=== PATIENT | male | born 1945 | race Hispanic/Latino ===

== ENCOUNTER 2016-05-26 15:18 | Emergency (ER) | payer MEDICARE, OTHER ==
[2016-05-26 15:59] VITALS: TEMP 99.6; BMI 28.2
--- NOTE | 2016-05-26 16:22 | ED PDOC ---
Arrival/HPI - General Chief Complaint: Abdominal Pain Time Seen by Provider: 05/26/16 15:36 Historian: Patient - History of Present Illness Narrative History of Present Illness (Text): 05/26/16 16:10 A 71 year old male, whose past medical history includes hypertension and liver cancer, presents to the emergency department complaining of abdominal distension for the past couple of days. Patient reports he did not notice a change in the abdomen but patient states she has seen worsening distension. Patient denies any abdominal pain, shortness of breath, fever, chills, cough, or any other complaints at this time. Patient has history of unresectable hepatocellular carcinoma had chemotherapy in the past but it showed no improvement and therefore was started on a clinical trial by his Oncologist. Patient is currently on trail with [id number] and/or Tremelimumab since 04/07/2016. PMD: Dr. Adkins Oncologist: Dr. Last Craven ([phone]) Time/Duration: 24 hours Symptom Onset: Gradual Symptom Course: Worsening Quality: Other Activities at Onset: Rest Context: Home Past Medical History - Provider Review Nursing Documentation Reviewed: Yes - Infectious Disease Hx of Infectious Diseases: None - Tetanus Immunization Tetanus Immunization: Unknown - Cardiac Hx Hypertension: Yes Hx Pacemaker: No - Pulmonary Hx Respiratory Disorders: No - Neurological Hx Neurological Disorder: No - HEENT Hx HEENT Disorder: No - Renal Hx Renal Disorder: No - Endocrine/Metabolic Hx Endocrine Disorders: No - Hematological/Oncological Hx Cancer: Yes (Liver CA) Hx Chemotherapy: Yes (Last dose 01/13/16 in AM) - Integumentary Hx Dermatological Disorder: No - Musculoskeletal/Rheumatological Hx Musculoskeletal Disorders: No Hx Falls: No - Gastrointestinal Hx Gastrointestinal Disorders: Yes - Genitourinary/Gynecological Hx Genitourinary Disorders: No - Psychiatric Hx Emotional Abuse: No Hx Physical Abuse: No Hx Substance Use: No - Surgical History Hx Cardiac Catheterization: No Hx Coronary Stent: No - Anesthesia Hx Anesthesia: No Hx Anesthesia Reactions: No Hx Malignant Hyperthermia: No - Suicidal Assessment Feels Threatened In Home Enviroment: No Family/Social History - Physician Review Nursing Documentation Reviewed: Yes Family/Social History: No Known Family HX Smoking Status: Former Smoker Hx Alcohol Use: Yes Hx Substance Use: No Allergies/Home Meds Allergies/Adverse Reactions: Allergies No Known Allergies Allergy (Verified 05/26/16 15:59) Home Medications: Home Meds Medication Instructions Recorded Confirmed Losartan [Cozaar] 100 mg PO DAILY 11/18/15 05/26/16 Tremelimunab 1 unit IV MON 05/26/16 05/26/16 Review of Systems - Physician Review All systems were reviewed & negative as marked: Yes - Review of Systems Respiratory: absent: SOB, Cough Gastrointestinal: Other (abdominal distension). absent: Abdominal Pain Physical Exam Vital Signs Reviewed: Yes Vital Signs Temp Pulse Resp BP Pulse Ox 05/26/16 16:23 89 18 104/67 95 05/26/16 15:55 99.6 F 92 H 18 102/68 95 Temperature: Afebrile Blood Pressure: Normal Pulse: Regular Respiratory Rate: Normal Appearance: Positive for: Well-Appearing, Non-Toxic, Comfortable Pain Distress: None Mental Status: Positive for: Alert and Oriented X 3 - Systems Exam Head: Present: Atraumatic, Normocephalic Pupils: Present: PERRL Extroacular Muscles: Present: EOMI Conjunctiva: Present: Normal Mouth: Present: Moist Mucous Membranes Neck: Present: Normal Range of Motion Respiratory/Chest: Present: Clear to Auscultation, Good Air Exchange. No: Respiratory Distress, Accessory Muscle Use Cardiovascular: Present: Regular Rate and Rhythm, Normal S1, S2. No: Murmurs Abdomen: Present: Distention, Normal Bowel Sounds, Hernias (ventral hernia reducible), Other (Ascites). No: Tenderness, Peritoneal Signs, Rebound, Guarding Upper Extremity: Present: Normal Inspection. No: Cyanosis, Edema Lower Extremity: Present: Edema (trace edema). No: Normal Inspection Neurological: Present: GCS=15, CN II-XII Intact, Speech Normal Skin: Present: Warm, Dry, Normal Color. No: Rashes Psychiatric: Present: Alert, Oriented x 3, Normal Insight, Normal Concentration Medical Decision Making ED Course and Treatment: 05/26/16 16:34 Impression: 71 year old male with abdominal distension Differential Diagnosis included but are not limited to: Ascites Plan: -- Labs -- Reassess and disposition Prior Visits: Notes and results from previous visits were reviewed. Patient came in on 02/19/16 for evaluation of scrotal pain and swelling. Progress Notes: 05/26/16 18:15 Testicle exam was nontender. Some scrotal swelling but not buldging. Very mild swelling. No redness or warmth. No evidence of cellulitis. Labs were reviewed with Dr. Marquez who is covering for his Bagging Salvager/ Oncologist at [facility]. He compared them to his previous labs they have there from about a month ago. He agrees that since this distention is not causing the patient any discomfort and labs are as such then the patient can follow up with them tomorrow. Dr. Marquez states that he should continue getting the CT through the same place they prescribed him for and not at this moment in the ED. Clinically there is no indication at this time for a CT urgently in the. Patient and feel comfortable with the game plan. They will follow up with Dr. Last Craven ([phone]) tomorrow as directed. - Lab Interpretations Lab Results: 05/26/16 17:00 05/26/16 17:00 Lab Results 05/26/16 17:00: WBC 2.9 L*, RBC 3.68, Hgb 12.3 L, Hct 34.7 L, MCV 94.3, MCH 33.4 , MCHC 35.4, RDW 14.8 H, Plt Count 144, MPV 9.9, Gran % 69.6 H, Lymph % (Auto) 20.6 L, Moody % (Auto) 6.3 H, Eos % (Auto) 2.8, Baso % (Auto) 0.7, Gran # 1.99, Lymph # 0.6 L, Moody # 0.2, Eos # 0.1, Baso # 0.02, PT 12.0 H, INR 1.11 H, APTT 26.3, Sodium 131 L, Potassium 3.8, Chloride 97 L, Carbon Dioxide 25, Anion Gap 13, BUN 9, Creatinine 0.9, Est GFR ( Amer) > 60, Est GFR (Non-Af Amer) > 60, Random Glucose 94, Calcium 9.1, Total Bilirubin 2.4 H, AST 255 H, ALT 98 H, Alkaline Phosphatase 170 H, Total Protein 7.2, Albumin 3.2, Globulin 4.0, Albumin/Globulin Ratio 0.8 L, Lipase 119 I have reviewed the lab results: Yes Interpretation: Abnormal lab values (elevated LFTs) - Scribe Statement The provider has reviewed the documentation as recorded by the Bernarda Zambrano training under [place] Mann All medical record entries made by the Bernarda were at my direction and personally dictated by me. I have reviewed the chart and agree that the record accurately reflects my personal performance of the history, physical exam, medical decision making, and the department course for this patient. I have also personally directed, reviewed, and agree with the discharge instructions and disposition. Disposition/Present on Arrival - Present on Arrival Any Indicators Present on Arrival: No History of DVT/PE: No History of Uncontrolled Diabetes: No Urinary Catheter: No History of Decub. Ulcer: No History Surgical Site Infection Following: None - Disposition Have Diagnosis and Disposition been Completed?: Yes Diagnosis: Ascites Disposition: HOME/ ROUTINE Disposition Time: 18:20 Patient Plan: Discharge Patient Problems: Current Active Problems Problem Status Diagnosed Ascites Acute Condition: GOOD Discharge Instructions (ExitCare): Ascites (DC) Additional Instructions: Sixto, thank you for letting us take care of you today. Your provider was Dr. Rizo. You were treated for Ascites. The emergency medical care you received today was directed at your acute symptoms. If you were prescribed any medication, please fill it and take as directed. It may take several days for your symptoms to resolve. Return to the Emergency Department if your symptoms worsen, do not improve, or if you have any other problems. Please contact your doctor or call one of the physicians/clinics you have been referred to that are listed on the Patient Visit Information form that is included in your discharge packet. Bring any paperwork you were given at discharge with you along with any medications you are taking to your follow up visit. Our treatment cannot replace ongoing medical care by a primary care provider (PCP) outside of the emergency department. Thank you for allowing the [facility] team to be part of your care today. If you had an X-Ray or CT scan: A Radiologist will review the ED reading if any change in treatment is needed we will contact you. If you had a blood, urine, or wound culture: It will take several days for the results, if any change in treatment is needed we will contact you. If you had an STI test: It will take 48 hours for the results. Please call after 1 week if you have not heard back. Referrals: Ok Adkins MD [Primary Care Provider] - Follow up with primary
[2016-05-26 17:27] LABS: ADD MANUAL DIFF? NO
[2016-05-26 17:38] LABS: BASO # 0.02 K/mm3 (0.0-2.0); BASO % 0.7 % (0.0-3.0); EOS # 0.1 (0.0-0.7); EOS % 2.8 % (1.5-5.0); GRAN # 1.99 (1.4-6.5); GRAN % 69.6 % (50.0-68.0); HEMATOCRIT 34.7 % (42.0-52.0); LYMPH # 0.6 (1.2-3.4); LYMPH % 20.6 % (22.0-35.0); MEAN CELL VOLUME 94.3 fL (80.0-105.0); MEAN CORPUSCULAR HEMOGLOBIN 33.4 pg (25.0-35.0); MEAN CORPUSCULAR HGB CONC 35.4 g/dl (31.0-37.0); MEAN PLATELET VOLUME 9.9 fl (7.0-11.0); MONO # 0.2 (0.1-0.6); MONO % 6.3 % (1.0-6.0); PLATELET COUNT 144 10^3/uL (120.0-450.0); RED CELL DISTRIBUTION WIDTH 14.8 % (11.5-14.5)
[2016-05-26 17:42] LABS: ALB/GLOB RATIO 0.8 (1.1-1.8); ALKALINE PHOSPHATASE 170 U/L (38-133); ALT/SGPT 98 U/L (7-56); AST/SGOT 255 U/L (15-59); BILIRUBIN,TOTAL 2.4 mg/dL (0.2-1.3); BLOOD UREA NITROGEN 9 mg/dL (7-21); CALCIUM 9.1 mg/dL (8.4-10.5); CARBON DIOXIDE 25 mmol/L (21-33); CHLORIDE 97 mmol/L (98-107); GFR AFRICAN-AMERICAN > 60; GLUCOSE,RANDOM 94 mg/dL (70-110); LIPASE 119 U/L (23-300); POTASSIUM 3.8 mmol/L (3.6-5.0); SODIUM 131 mmol/L (132-148); TOTAL PROTEIN 7.2 g/dL (5.8-8.3)
[2016-05-26 17:45] LABS: INR 1.11 (0.93-1.08); PARTIAL THROMBOPLASTIN TIME 26.3 Seconds (23.7-30.8)
[2016-05-26 17:51] LABS: WHITE BLOOD COUNT 2.9 10^3/ul (4.5-11.0)
[2016-05-26 18:24] VITALS: BP 103/69; PULSE 88; RESP 17; O2SAT 96
== END 2016-05-26 18:24 | disposition home or self-care (01) ==
LOC: ED 15:18
DX: R18.8 Other ascites (principal); I10 Essential (primary) hypertension; Z85.05 Personal history of malignant neoplasm of liver; Z87.891 Personal history of nicotine dependence

== ENCOUNTER 2016-07-01 10:41 | Inpatient (IN) | payer MEDICARE, OTHER ==
[2016-07-01 10:59] VITALS: BMI 29.9
--- NOTE | 2016-07-01 11:31 | ED PDOC ---
Arrival/HPI - General Chief Complaint: Abdominal Pain Time Seen by Provider: 07/01/16 11:08 Historian: Patient - History of Present Illness Narrative History of Present Illness (Text): 07/01/16 11:31 Patient is a 71 year old male whose past medical history includes hepatocellular carcinoma, previously on experimental treatment which was unsuccessful, and hypertension, presents to the emergency department with worsening abdominal distension and leg swelling over the past few days. He states he is able to walk without difficulty. Denies shortness of breath, pain, or other complaints. Patient notes he has had abdominal swelling for the past few months. Patient presents outpatient CT report from 05/27/16 which showed: Impression: 1. Since 03/27/16, increased bilateral multifocal liver tumors with slightly increased size of tumor thrombous in IVC extending to cavoatrial junction. Unchanged extensive portal vein tumor thrombosis . 2. New peripancreatic adenopathy, consistent with brandee metastasis. 3. Increased now moderate volume abdominopelvic ascites PMD: Dr. Jed Gamboa Time/Duration: < week Symptom Onset: Gradual Symptom Course: Unchanged Modifying Factors (Text): None Associated Symptoms (Text): None Past Medical History - Provider Review Nursing Documentation Reviewed: Yes - Infectious Disease Hx of Infectious Diseases: None - Tetanus Immunization Tetanus Immunization: Unknown - Reproductive Currently : No - Cardiac Hx Cardiac Disorders: Yes Hx Hypertension: Yes Hx Pacemaker: No - Pulmonary Hx Respiratory Disorders: No - Neurological Hx Neurological Disorder: No - HEENT Hx HEENT Disorder: No - Renal Hx Renal Disorder: No - Endocrine/Metabolic Hx Endocrine Disorders: No - Hematological/Oncological Hx Blood Disorders: Yes Hx Cancer: Yes (Liver CA) Hx Chemotherapy: Yes (Last dose 01/13/16 in AM) - Integumentary Hx Dermatological Disorder: No - Musculoskeletal/Rheumatological Hx Musculoskeletal Disorders: No Hx Falls: No - Gastrointestinal Hx Gastrointestinal Disorders: Yes - Genitourinary/Gynecological Hx Genitourinary Disorders: No - Psychiatric Hx Emotional Abuse: No Hx Physical Abuse: No Hx Substance Use: No - Surgical History Hx Cardiac Catheterization: No Hx Coronary Stent: No - Anesthesia Hx Anesthesia: No Hx Anesthesia Reactions: No Hx Malignant Hyperthermia: No - Suicidal Assessment Feels Threatened In Home Enviroment: No Family/Social History - Physician Review Nursing Documentation Reviewed: Yes Family/Social History: Unknown Family HX Smoking Status: Former Smoker Hx Alcohol Use: No Hx Substance Use: No Allergies/Home Meds Allergies/Adverse Reactions: Allergies No Known Allergies Allergy (Verified 07/01/16 19:44) Home Medications: Home Meds Medication Instructions Recorded Confirmed Losartan [Cozaar] 100 mg PO DAILY 11/18/15 07/01/16 Ergocalciferol (Vitamin D2) 0 unit PO DAILY 07/01/16 07/01/16 [Vitamin D] Gabapentin [Neurontin] 250 mg PO DAILY 07/01/16 07/01/16 predniSONE [predniSONE Tab] 20 mg PO DAILY 07/01/16 07/01/16 Review of Systems - Review of Systems Eyes: absent: Vision Changes ENT: absent: Hearing Changes Respiratory: absent: SOB Cardiovascular: Edema, MCKEE. absent: Chest Pain, Calf Pain, Syncope Gastrointestinal: Other (Abdominal swelling). absent: Abdominal Pain, Nausea, Vomiting Genitourinary Male: absent: Dysuria, Frequency, Hematuria Musculoskeletal: absent: Back Pain Skin: absent: Rash Neurological: absent: Headache Endocrine: absent: Diaphoresis Psychiatric: absent: Depression Physical Exam - Physical Exam Narrative Physical Exam (Text): Head: Atraumatic. Normocephalic. Eyes: PERRL. EOMI. Conjunctivae are not pale. ENT: Mucous membranes are moist and intact. Oropharynx is clear and symmetric. Neck: Supple. Full ROM. No JVD. No lymphadenopathy. Cardiovascular: Regular rate. Regular rhythm. No murmurs, rubs, or gallops. Distal pulses are 2+ and symmetric. Pulmonary/Chest: No evidence of respiratory distress. Clear to auscultation bilaterally. No wheezing, rales or rhonchi. Abdominal: Abdominal distension with positive fluid wave. Prominent abdominal wall blood vessels. No rebound, guarding, or rigidity. No organomegaly. Good bowel sounds. Back: No CVA tenderness. Extremities: Bilateral lower extremity edema. No cyanosis. No clubbing. Full range of motion in all extremities. No calf tenderness. Skin: Skin appears mildly jaundice and pale. Skin is warm and dry. No petechiae. No purpura. Neurological: Alert, awake, and oriented to person, place, time, and situation. Normal speech. Motor and sensory intact. No asterixis. Psychiatric: Good eye contact. Normal interaction, affect, and behavior. Vital Signs Reviewed: Yes Vital Signs Temp Pulse Resp BP Pulse Ox 07/01/16 14:38 97 H 19 102/61 99 07/01/16 10:59 98.2 F 99 H 16 132/74 98 Temperature: Afebrile Blood Pressure: Normal Pulse: Regular Respiratory Rate: Normal Appearance: Positive for: Non-Toxic, Comfortable, Ill-Appearing Pain Distress: Mild Mental Status: Positive for: Alert and Oriented X 3 Medical Decision Making ED Course and Treatment: Differential Diagnosis included but are not limited to: Ascites, advance hepatocellular carcinoma Plan: Patient denies pain, in no respiratory distress. Will check basic labs and consult oncologist and PMD Prior Visits: Notes and results from previous visits were reviewed. Patient last seen in the ED on 05/26/16 for abdominal distension and discharged home. Progress Notes: Patient's history supplemented by family. Patient denies chest pain, denies shortness of breath, denies abdominal pain. Exam consistent with ascites. No fever, no peritoneal signs. Patient's oncologist here through [facility] has been with Dr. Ledesma. CT ordered given progressive distension: PROCEDURE: CT Abdomen and Pelvis without intravenous contrast Stencil Machine Operator : Vida Marvin V. Report Date : 07/01/2016 13:24:29 IMPRESSION: Interval increased ascites All increased liver masses this patient with prior known left and right hepatic lobe masses. Patient also has history of unknown portal vein thrombosis. Assessment for thrombi limited without IV contrast Case discussed with Dr. Magana, covering Dr. Adkins, who accepts patient for admission. Will admit for oncology consultation given advanced hempatocellular carcinoma history with progressive ascites and therapeutic paracentesis. 07/03/16 11:41 - Lab Interpretations Lab Results: 07/01/16 11:39 07/01/16 11:39 Lab Results 07/01/16 12:30: Urine Color Yellow, Urine Appearance Clear, Urine pH 7.0, Ur Specific Cotton 1.010, Urine Protein Negative, Urine Glucose (UA) Negative, Urine Ketones Negative, Urine Blood Negative, Urine Nitrate Negative, Urine Bilirubin Negative, Urine Urobilinogen 1.0 H, Ur Leukocyte Esterase Negative 07/01/16 11:39: Blood Type A POSITIVE, Antibody Screen Negative, BBK History Checked Patient has bt 07/01/16 11:39: Sodium 131 L, Potassium 3.9, Chloride 97 L, Carbon Dioxide 26, Anion Gap 12, BUN 13, Creatinine 0.8, Est GFR ( Amer) > 60, Est GFR (Non- Af Amer) > 60, Random Glucose 92, Calcium 9.1, Total Bilirubin 4.3 H, AST 317 H , ALT 178 H, Alkaline Phosphatase 298 H, Lactate Dehydrogenase 545, Total Creatine Kinase 32 L, Troponin I < 0.01, NT-Pro-B Natriuret Pep 460 H, Total Protein 7.0, Albumin 3.1, Globulin 4.0, Albumin/Globulin Ratio 0.8 L 07/01/16 11:39: PT 12.9 H, INR 1.19 H, APTT 27.2 07/01/16 11:39: WBC 3.6 L D, RBC 3.73, Hgb 12.4 L, Hct 35.0 L, MCV 93.8, MCH 33.2, MCHC 35.4, RDW 16.3 H, Plt Count 164, MPV 10.0, Gran % 74.1 H, Lymph % ( Auto) 17.6 L, Lassen % (Auto) 6.1 H, Eos % (Auto) 1.4 L, Baso % (Auto) 0.8, Gran # 2.65, Lymph # 0.6 L, Lassen # 0.2, Eos # 0.1, Baso # 0.03 - RAD Interpretation Radiology Orders: 07/01/16 11:32 CHEST PORTABLE [RAD] Stat 07/01/16 12:01 ABD & PELVIS W/O PO OR IV CONT [CT] Stat Mold Burner: Radiologist - EKG Interpretation Interpreted by ED Physician: Yes Type: 12 lead EKG - Medication Orders Current Medication Orders: Gabapentin (Neurontin) 400 mg PO TID MATTHEW PRN Reason: Protocol Last Admin: 07/03/16 10:02 Dose: 400 mg Losartan Potassium (Cozaar) 100 mg PO DAILY [facility] Last Admin: 07/03/16 10:03 Dose: 100 mg Ondansetron HCl (Zofran Inj) 4 mg IVP Q4 PRN PRN Reason: Nausea/Vomiting Pantoprazole Sodium (Protonix Ec Tab) 40 mg PO 0630 [facility] Last Admin: 07/03/16 05:45 Dose: 40 mg Prednisone (Prednisone Tab) 20 mg PO DAILY [facility] Last Admin: 07/03/16 10:03 Dose: 20 mg Discontinued Medications Furosemide (Lasix) 20 mg IVP BID STA Stop: 07/01/16 14:31 Last Admin: 07/01/16 15:30 Dose: Not Given Non-Admin Reason: Blood Sugar Parameter Furosemide (Lasix) Confirm Administered Dose 40 mg .ROUTE .STK-MED ONE Stop: 07/01/16 16:52 Albumin Human (Albumin Human 5% (12.5 Gm/250 Ml)) 250 mls @ 62.5 mls/hr IV ONCE ONE Stop: 07/02/16 18:14 Pneumococcal Polyvalent Vaccine (Pneumovax 23 Vaccine) 0.5 ml IM .ONCE ONE Stop: 07/01/16 21:33 - Scribe Statement The provider has reviewed the documentation as recorded by the Bernarda Perez Provider Scribe Attestation: All medical record entries made by the Dexteribching were at my direction and personally dictated by me. I have reviewed the chart and agree that the record accurately reflects my personal performance of the history, physical exam, medical decision making, and the department course for this patient. I have also personally directed, reviewed, and agree with the discharge instructions and disposition. Disposition/Present on Arrival - Present on Arrival Any Indicators Present on Arrival: No History of DVT/PE: No History of Uncontrolled Diabetes: No Urinary Catheter: No History of Decub. Ulcer: No History Surgical Site Infection Following: None - Disposition Have Diagnosis and Disposition been Completed?: Yes Diagnosis: Ascites, Hepatocellular carcinoma Disposition: HOSPITALIZED Disposition Time: 13:00 Patient Plan: Admission Condition: SERIOUS
[2016-07-01 11:50] LABS: ADD MANUAL DIFF? NO
[2016-07-01 12:00] LABS: BASO # 0.03 K/mm3 (0.0-2.0); BASO % 0.8 % (0.0-3.0); EOS # 0.1 (0.0-0.7); EOS % 1.4 % (1.5-5.0); GRAN # 2.65 (1.4-6.5); GRAN % 74.1 % (50.0-68.0); LYMPH # 0.6 (1.2-3.4); LYMPH % 17.6 % (22.0-35.0); MEAN CELL VOLUME 93.8 fL (80.0-105.0); MEAN CORPUSCULAR HEMOGLOBIN 33.2 pg (25.0-35.0); MEAN CORPUSCULAR HGB CONC 35.4 g/dl (31.0-37.0); MONO # 0.2 (0.1-0.6); MONO % 6.1 % (1.0-6.0); PLATELET COUNT 164 10^3/uL (120.0-450.0); RED CELL DISTRIBUTION WIDTH 16.3 % (11.5-14.5); WHITE BLOOD COUNT 3.6 10^3/ul (4.5-11.0)
[2016-07-01 12:10] LABS: ALB/GLOB RATIO 0.8 (1.1-1.8); ALKALINE PHOSPHATASE 298 U/L (38-133); ALT/SGPT 178 U/L (7-56); AST/SGOT 317 U/L (15-59); BILIRUBIN,TOTAL 4.3 mg/dL (0.2-1.3); BLOOD UREA NITROGEN 13 mg/dL (7-21); CALCIUM 9.1 mg/dL (8.4-10.5); CARBON DIOXIDE 26 mmol/L (21-33); CHLORIDE 97 mmol/L (98-107); GFR AFRICAN-AMERICAN > 60; GLUCOSE,RANDOM 92 mg/dL (70-110); INR 1.19 (0.93-1.08); PARTIAL THROMBOPLASTIN TIME 27.2 Seconds (23.7-30.8); POTASSIUM 3.9 mmol/L (3.6-5.0); SODIUM 131 mmol/L (132-148)
[2016-07-01 12:21] LABS: TROPONIN I < 0.01 ng/mL
[2016-07-01 12:38] LABS: URINE BILIRUBIN NEGATIVE (NEGATIVE); URINE BLOOD NEGATIVE (NEGATIVE); URINE GLUCOSE (UA) NEGATIVE (NEGATIVE); URINE KETONE NEGATIVE (NEGATIVE); URINE LEUKOCYTE ESTERASE NEGATIVE Leu/uL (NEGATIVE); URINE PROTEIN NEGATIVE mg/dL (<30 mg/dL)
[2016-07-01 12:39] LABS: URINE APPEARANCE CLEAR (CLEAR); URINE COLOR YELLOW (YELLOW)
--- NOTE | 2016-07-01 12:54 | RAD ---
HISTORY: leg edema COMPARISON: 02/19/2016 FINDINGS: LUNGS: No active pulmonary disease. PLEURA: No significant pleural effusion identified, no pneumothorax apparent. CARDIOVASCULAR: Normal. OSSEOUS STRUCTURES: No significant abnormalities. VISUALIZED UPPER ABDOMEN: Normal. OTHER FINDINGS: None. IMPRESSION: No active disease.
--- NOTE | 2016-07-01 13:26 | CT ---
PROCEDURE: CT Abdomen and Pelvis without intravenous contrast HISTORY: new onset abdominal distension, hx of ca; history unknown liver masses COMPARISON: CT abdomen and pelvis with IV contrast 01/14/2016. 11/08/2015 abdominal ultrasound TECHNIQUE: Without contrast.. Contrast Dose: None Radiation dose: Total exam DLP = 1409 mGy-cm. This CT exam was performed using one or more of the following dose reduction techniques: Automated exposure control, adjustment of the mA and/or kV according to patient size, and/or use of iterative reconstruction technique. FINDINGS: LOWER THORAX: Interval linear left basal atelectasis atherosclerotic vascular calcifications with coronary artery calcifications LIVER: Although the exam is performed without intravenous contrast, patient has known left and right hepatic lobe masses. The current exam suggests interval increase in size of at least some of the right liver masses GALLBLADDER AND BILE DUCTS: Distended gallbladder with inferred gallbladder sludge. No hyperdense gallstones. PANCREAS: Unremarkable. No gross lesion or ductal dilatation. SPLEEN: Mild splenomegaly-unchanged ADRENALS: Unremarkable. No mass. KIDNEYS AND URETERS: No hydronephrosis. Perirenal stranding right posterior cortical focal atrophy VASCULATURE: Perisplenic varices. Patient has history of prior portal vein thrombosis -evaluation for thrombi limited without IV contrast. BOWEL: Unremarkable. No obstruction. No gross mural thickening. Bowel loops floating in the ascites APPENDIX: Not identified PERITONEUM: No free air. Extensive ascites LYMPH NODES: Retroperitoneal nodes-unchanged none larger than 1.5 cm seen BLADDER: Unremarkable. REPRODUCTIVE: Small punctate prostatic calcification. Prostate size normal BONES: No acute fracture. Hypertrophic arthrosis facets and lumbar spondylosis OTHER FINDINGS: The ascitic fluid is extending down in to each scrotal sac IMPRESSION: Interval increased ascites All increased liver masses this patient with prior known left and right hepatic lobe masses. Patient also has history of unknown portal vein thrombosis. Assessment for thrombi limited without IV contrast
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
--- NOTE | 2016-07-01 16:19 | CARD ---
APPROVED REPORT EKG Measurement Heart [id number] <Conclusion> Sinus rhythm with premature atrial complexes Low voltage QRS Borderline ECG
--- NOTE | 2016-07-01 20:47 | CP.PCM.CON ---
History of Present Illness - History of Present Illness History of Present Illness: Oncology Consult Referred by Dr. Adkins for h/o HCC HPI- Mr Henson is 71 y/o M who is known to Dr. Ledesma. He was diagnosed with advanced hepatocellular carcinoma around Dec last year. He was initially treated with Nexavar but could not tolerate it due to side effects/ infections. He later went to [facility] and was enrolled in a clinical trial. He was however, found to progress recently and was taken off study. He was admitted now with worsening abdominal distension and leg swelling. Also complains of fatigue and shortness of breath with exertion. He denies pain. Denies headaches, vision changes, back pain, leg weakness or sensory loss. Family and Social history reviewed. Review of Systems - Review of Systems All systems: reviewed and no additional remarkable complaints except Review of Systems: as in HPI Past Patient History - Infectious Disease Hx of Infectious Diseases: None - Tetanus Immunizations Tetanus Immunization: Unknown - Past Social History Smoking Status: Former Smoker Alcohol: None Drugs: Denies Home Situation {Lives}: With Family - CARDIAC Hx Cardiac Disorders: Yes Hx Hypertension: Yes Hx Pacemaker: No - PULMONARY Hx Respiratory Disorders: No - NEUROLOGICAL Hx Neurological Disorder: No - HEENT Hx HEENT Problems: No - RENAL Hx Chronic Kidney Disease: No - ENDOCRINE/METABOLIC Hx Endocrine Disorders: No - HEMATOLOGICAL/ONCOLOGICAL Hx Blood Disorders: Yes Hx Cancer: Yes (Liver CA) Hx Chemotherapy: Yes (Last dose 01/13/16 in AM) - INTEGUMENTARY Hx Dermatological Problems: No - MUSCULOSKELETAL/RHEUMATOLOGICAL Hx Musculoskeletal Disorders: No Hx Falls: No - GASTROINTESTINAL Hx Gastrointestinal Disorders: Yes - GENITOURINARY/GYNECOLOGICAL Hx Genitourinary Disorders: No - PSYCHIATRIC Hx Emotional Abuse: No Hx Physical Abuse: No Hx Substance Use: No - SURGICAL HISTORY Hx Cardiac Catheterization: No Hx Coronary Stent: No - ANESTHESIA Hx Anesthesia: No Hx Anesthesia Reactions: No Hx Malignant Hyperthermia: No Meds Allergies/Adverse Reactions: Allergies Allergy/AdvReac Type Severity Reaction Status Date / Time No Known Allergies Allergy Verified 07/01/16 19:44 - Medications Medications: Current Medications Gabapentin (Neurontin) 400 mg PO TID MATTHEW PRN Reason: Protocol Last Admin: 07/01/16 17:22 Dose: 400 mg Losartan Potassium (Cozaar) 100 mg PO DAILY MATTHEW Ondansetron HCl (Zofran Inj) 4 mg IVP Q4 PRN PRN Reason: Nausea/Vomiting Pantoprazole Sodium (Protonix Ec Tab) 40 mg PO 0630 MATTHEW Prednisone (Prednisone Tab) 20 mg PO DAILY MATTHEW Physical Exam - Head Exam Head Exam: ATRAUMATIC, NORMAL INSPECTION - Eye Exam Eye Exam: EOMI, PERRL, Scleral icterus - Neck Exam Neck exam: Negative for: Lymphadenopathy - Respiratory Exam Respiratory Exam: Clear to Auscultation Bilateral - Cardiovascular Exam Cardiovascular Exam: REGULAR RHYTHM - GI/Abdominal Exam GI & Abdominal Exam: Distended, Normal Bowel Sounds, Soft. absent: Tenderness - Extremities Exam Extremities exam: Positive for: pedal edema - Neurological Exam Neurological exam: Alert, Oriented x3 Results - Vital Signs Recent Vital Signs: Last Vital Signs Temp 98.3 F 07/01/16 16:00 Pulse 72 07/01/16 16:00 Resp 18 07/01/16 16:00 BP 90/50 L 07/01/16 16:00 Pulse Ox 98 07/01/16 16:00 - Labs Result Diagrams: 07/01/16 11:39 07/01/16 11:39 Assessment & Plan - Assessment and Plan (Free Text) Assessment: Advanced HCC Progressed on Nexavar and therapeutic agent. Dr. Ledesma had a long discussion with family and the decision was to proceed with palliative/ hospice care. Consider palliative care consult to enroll him into hospice. Therapeutic paracentesis Continue diuretics and other symptomatic care. NO further treatment planned from oncology point of view. Above plan was discussed with patient and his family. Thank you for the consult Edinson Morrison - Date & Time Date: 07/01/16 Time: 17:47
[2016-07-01] MEDS ORDERED: Pneumococcal 23-Valent Vaccine IM ONE (21:32)
[2016-07-02] MEDS ORDERED: Pantoprazole 40 mg EC Tab PO SCH (06:30)
[2016-07-02 21:34] LABS: ADD MANUAL DIFF? NO
[2016-07-03 06:59] LABS: ADD MANUAL DIFF? NO
[2016-07-03 07:13] LABS: BASO # 0.02 K/mm3 (0.0-2.0); BASO % 0.5 % (0.0-3.0); EOS % 1.1 % (1.5-5.0); GRAN # 2.46 (1.4-6.5); GRAN % 66.9 % (50.0-68.0); HEMATOCRIT 32.5 % (42.0-52.0); LYMPH # 0.9 (1.2-3.4); LYMPH % 23.6 % (22.0-35.0); MEAN CELL VOLUME 93.4 fL (80.0-105.0); MEAN CORPUSCULAR HGB CONC 35.4 g/dl (31.0-37.0); MEAN PLATELET VOLUME 10.2 fl (7.0-11.0); MONO # 0.3 (0.1-0.6); MONO % 7.9 % (1.0-6.0); PLATELET COUNT 161 10^3/uL (120.0-450.0); RED CELL DISTRIBUTION WIDTH 16.2 % (11.5-14.5); WHITE BLOOD COUNT 3.7 10^3/ul (4.5-11.0)
[2016-07-03 07:46] LABS: ALB/GLOB RATIO 0.8 (1.1-1.8); ALKALINE PHOSPHATASE 250 U/L (38-133); ALT/SGPT 147 U/L (7-56); AST/SGOT 278 U/L (15-59); BILIRUBIN,TOTAL 3.2 mg/dL (0.2-1.3); BLOOD UREA NITROGEN 18 mg/dL (7-21); CALCIUM 8.7 mg/dL (8.4-10.5); CARBON DIOXIDE 24 mmol/L (21-33); CHLORIDE 102 mmol/L (98-107); GFR AFRICAN-AMERICAN > 60; GLUCOSE,RANDOM 82 mg/dL (70-110); POTASSIUM 3.9 mmol/L (3.6-5.0); SODIUM 134 mmol/L (132-148); TOTAL PROTEIN 6.3 g/dL (5.8-8.3)
[2016-07-03 10:11] VITALS: BP 100/70; PULSE 84; RESP 20; TEMP 98.5; O2SAT 96
--- NOTE | 2016-07-03 11:32 | CP.PCM.PN ---
<Lily Snow - Last Filed: 07/03/16 11:33> Subjective - Date & Time of Evaluation Date of Evaluation: 07/02/16 Time of Evaluation: 07:30 - Subjective Subjective: Medicine progress note for Dr Magana and Dr Adkins. Patient in no acute distress, no overnight events. Patient denies cp, sob, headache or dizziness. Patient admits to abdominal discomfort, but no pain. Patient scheduled for IR- paracentesis today. Objective - Vital Signs/Intake and Output Vital Signs (last 24 hours): Temp Pulse Resp BP Pulse Ox 98.5 F 84 20 100/70 96 07/03/16 06:00 07/03/16 06:00 07/03/16 06:00 07/03/16 06:00 07/03/16 06:00 Intake and Output: 07/03/16 07/03/16 06:59 18:59 Intake Total 660 Output Total 350 Balance 310 - Medications Medications: Current Medications Gabapentin (Neurontin) 400 mg PO TID [facility] PRN Reason: Protocol Last Admin: 07/03/16 10:02 Dose: 400 mg Losartan Potassium (Cozaar) 100 mg PO DAILY [facility] Last Admin: 07/03/16 10:03 Dose: 100 mg Ondansetron HCl (Zofran Inj) 4 mg IVP Q4 PRN PRN Reason: Nausea/Vomiting Pantoprazole Sodium (Protonix Ec Tab) 40 mg PO 0630 [facility] Last Admin: 07/03/16 05:45 Dose: 40 mg Prednisone (Prednisone Tab) 20 mg PO DAILY [facility] Last Admin: 07/03/16 10:03 Dose: 20 mg - Labs Labs: 07/03/16 06:45 07/03/16 06:45 PT 12.9 Seconds (9.9-11.8) H 07/01/16 11:39 INR 1.19 (0.93-1.08) H 07/01/16 11:39 APTT 27.2 Seconds (23.7-30.8) 07/01/16 11:39 - Constitutional Appears: No Acute Distress, Older Than Stated Age, Cachectic, Chronically Ill - Head Exam Head Exam: ATRAUMATIC, NORMAL INSPECTION, NORMOCEPHALIC - Eye Exam Eye Exam: PERRL, Scleral icterus - ENT Exam ENT Exam: Mucous Membranes Dry - Neck Exam Neck Exam: Normal Inspection - Respiratory Exam Respiratory Exam: Clear to Ausculation Bilateral, NORMAL BREATHING PATTERN. absent: Rales, Rhonchi, Wheezes, Respiratory Distress, Stridor - Cardiovascular Exam Cardiovascular Exam: REGULAR RHYTHM, RRR, +S1, +S2 - GI/Abdominal Exam GI & Abdominal Exam: Soft, Normal Bowel Sounds. absent: Distended, Firm, Guarding, Rigid, Tenderness - Extremities Exam Extremities Exam: Pedal Edema (+3) - Back Exam Back Exam: NORMAL INSPECTION - Neurological Exam Neurological Exam: Alert, Awake, Oriented x3 - Psychiatric Exam Psychiatric exam: Flat Affect - Skin Skin Exam: Dry, Intact, Normal Color, Warm Assessment and Plan - Assessment and Plan (Free Text) Assessment: Patient is a 71 y/o with PMH of hepatocellular ca s/p chemo, htn, neuropathy admitted with ascites Plan: 1) Abdominal Distention secondary ascites - Paracentesis today. - will continue Lasix 20mg ivp - will give one dose of albumin to increase intracellular fluid uptake. - Prostat supplementation - zofran prn for nausea - bcx with no growth in 24 hrs. - no signs of sepsis at this time, but will continue to monitor. 2) Transaminitis secondary to hepatocellular ca - MELD score of 19 - heme/on following, recommending palliative care. - continue prednisone 3) Neuropathy - continue neurontin 4) DVT and gi prophylaxis: scds and protonix. Patient seen, examined, case discussed with Dr Adkins. <Ok Adkins - Last Filed: 07/22/16 13:55> Objective - Vital Signs/Intake and Output Vital Signs (last 24 hours): Temp Pulse Resp BP Pulse Ox 98.5 F 84 20 100/70 96 07/03/16 06:00 07/03/16 06:00 07/03/16 06:00 07/03/16 06:00 07/03/16 06:00 - Labs Labs: 07/03/16 06:45 07/03/16 06:45 PT 12.9 Seconds (9.9-11.8) H 07/01/16 11:39 INR 1.19 (0.93-1.08) H 07/01/16 11:39 APTT 27.2 Seconds (23.7-30.8) 07/01/16 11:39 Attending/Attestation - Attestation I have personally seen and examined this patient.: Yes I have fully participated in the care of the patient.: Yes I have reviewed all pertinent clinical information, including history, physical exam and plan: Yes Notes (Text): 07/22/16 13:55 Resident note done after seen and examined by me with discussion. The note is a representation of my history, physical and plan for patient.
--- NOTE | 2016-07-03 12:26 | CP.PCM.DIS ---
<Lily Snow - Last Filed: 07/06/16 17:35> Provider - Provider Date of Admission: 07/01/16 13:34 Attending physician: Ok Adkins MD Primary care physician: Ok Adkins MD Consults: IR Palliative Time Spent in preparation of Discharge (in minutes): 60 Diagnosis - Discharge Diagnosis (1) Ascites Status: Acute (2) Neuropathy Status: Chronic (3) Hepatocellular carcinoma Status: Chronic Hospital Course - Lab Results Lab Results: Micro Results 07/01/16 16:50 Blood-Venous Blood Culture - Preliminary NO GROWTH AFTER 24 HOURS Most Recent Lab Values WBC 3.7 10^3/ul (4.5-11.0) L 07/03/16 06:45 RBC 3.48 10^6/uL (3.5-6.1) L 07/03/16 06:45 Hgb 11.5 gm/dL (14.0-18.0) L 07/03/16 06:45 Hct 32.5 % (42.0-52.0) L 07/03/16 06:45 MCV 93.4 fL (80.0-105.0) 07/03/16 06:45 MCH 33.0 pg (25.0-35.0) 07/03/16 06:45 MCHC 35.4 g/dl (31.0-37.0) 07/03/16 06:45 RDW 16.2 % (11.5-14.5) H 07/03/16 06:45 Plt Count 161 10^3/uL (120.0-450.0) 07/03/16 06:45 MPV 10.2 fl (7.0-11.0) 07/03/16 06:45 Gran % 66.9 % (50.0-68.0) 07/03/16 06:45 Lymph % (Auto) 23.6 % (22.0-35.0) 07/03/16 06:45 [place] % (Auto) 7.9 % (1.0-6.0) H 07/03/16 06:45 Eos % (Auto) 1.1 % (1.5-5.0) L 07/03/16 06:45 Baso % (Auto) 0.5 % (0.0-3.0) 07/03/16 06:45 Gran # 2.46 (1.4-6.5) 07/03/16 06:45 Lymph # 0.9 (1.2-3.4) L 07/03/16 06:45 Trinity # 0.3 (0.1-0.6) 07/03/16 06:45 Eos # 0.0 (0.0-0.7) 07/03/16 06:45 Baso # 0.02 K/mm3 (0.0-2.0) 07/03/16 06:45 PT 12.9 Seconds (9.9-11.8) H 07/01/16 11:39 INR 1.19 (0.93-1.08) H 07/01/16 11:39 APTT 27.2 Seconds (23.7-30.8) 07/01/16 11:39 Sodium 134 mmol/L (132-148) 07/03/16 06:45 Potassium 3.9 mmol/L (3.6-5.0) 07/03/16 06:45 Chloride 102 mmol/L (98-107) 07/03/16 06:45 Carbon Dioxide 24 mmol/L (21-33) 07/03/16 06:45 Anion Gap 12 (10-20) 07/03/16 06:45 BUN 18 mg/dL (7-21) 07/03/16 06:45 Creatinine 0.9 mg/dL (0.5-1.4) 07/03/16 06:45 Est GFR ( Amer) > 60 07/03/16 06:45 Est GFR (Non-Af Amer) > 60 07/03/16 06:45 Random Glucose 82 mg/dL (70-110) 07/03/16 06:45 Calcium 8.7 mg/dL (8.4-10.5) 07/03/16 06:45 Total Bilirubin 3.2 mg/dL (0.2-1.3) H 07/03/16 06:45 AST 278 U/L (15-59) H 07/03/16 06:45 ALT 147 U/L (7-56) H 07/03/16 06:45 Alkaline Phosphatase 250 U/L (38-133) H 07/03/16 06:45 Lactate Dehydrogenase 545 U/L (333-699) 07/01/16 11:39 Total Creatine Kinase 32 U/L (35-230) L 07/01/16 11:39 Troponin I < 0.01 ng/mL 07/01/16 11:39 NT-Pro-B Natriuret Pep 460 pg/mL (0-450) H 07/01/16 11:39 Total Protein 6.3 g/dL (5.8-8.3) 07/03/16 06:45 Albumin 2.8 g/dL (3.0-4.8) L 07/03/16 06:45 Globulin 3.5 gm/dL 07/03/16 06:45 Albumin/Globulin Ratio 0.8 (1.1-1.8) L 07/03/16 06:45 Urine Color Yellow (YELLOW) 07/01/16 12:30 Urine Appearance Clear (CLEAR) 07/01/16 12:30 Urine pH 7.0 (4.7-8.0) 07/01/16 12:30 Ur Specific [place] 1.010 (1.005-1.035) 07/01/16 12:30 Urine Protein Negative mg/dL (<30 mg/dL) 07/01/16 12:30 Urine Glucose (UA) Negative mg/dL (NEGATIVE) 07/01/16 12:30 Urine Ketones Negative mg/dL (NEGATIVE) 07/01/16 12:30 Urine Blood Negative (NEGATIVE) 07/01/16 12:30 Urine Nitrate Negative (NEGATIVE) 07/01/16 12:30 Urine Bilirubin Negative (NEGATIVE) 07/01/16 12:30 Urine Urobilinogen 1.0 E.U./dL (<1 E.U./dL) H 07/01/16 12:30 Ur Leukocyte Esterase Negative Giorgi/uL (NEGATIVE) 07/01/16 12:30 Blood Type A POSITIVE 07/01/16 11:39 Antibody Screen Negative 07/01/16 11:39 BBK History Checked Patient has bt 07/01/16 11:39 - Hospital Course Hospital Course: Patient is a 71 y/o with PMH of hepatocellular ca s/p chemo, htn, neuropathy admitted with ascites. Basic labs revealed transaminitis likely 2nd from the cancer with MELD score of 19. Patient was giving Lasix ivp for symptomatic relief. IR was consulted, patient had paracentesis. Palliative nurse saw patient. Patient to follow up with Dr Wolfgang Shields as outpatient for symptom relief paracentesis. Patient discharge with home hospice - Date & Time of H&P Date of H&P: 07/01/16 Time of H&P: 14:59 Discharge Exam - Head Exam Head Exam: ATRAUMATIC, NORMAL INSPECTION, NORMOCEPHALIC - Eye Exam Eye Exam: EOMI, PERRL, Scleral icterus - ENT Exam ENT Exam: Mucous Membranes Moist - Neck Exam Neck exam: Normal Inspection - Respiratory Exam Respiratory Exam: Clear to PA & Lateral, NORMAL BREATHING PATTERN, UNREMARKABLE. absent: Prolonged Expiratory Phase, Rales, Rhonchi, Wheezes, Respiratory Distress, Stridor - Cardiovascular Exam Cardiovascular Exam: REGULAR RHYTHM, +S1, +S2. absent: Systolic Murmur - GI/Abdominal Exam GI & Abdominal Exam: Distended, Organomegaly, Soft, Unremarkable. absent: Firm , Guarding, Tenderness - Extremities Exam Extremities exam: pedal edema - Back Exam Back exam: NORMAL INSPECTION - Neurological Exam Neurological exam: Alert, Oriented x3 - Psychiatric Exam Psychiatric exam: Normal Affect, Normal Mood - Skin Skin Exam: Dry, Normal Color, Warm Additional comments: jaundice. Discharge Plan - Follow Up Plan Condition: SERIOUS Disposition: HOSPICE - HOME Patient education suggested?: Yes Instructions: Abdominal Paracentesis (DC) Additional Instructions: Palliative care Follow up with Dr Wolfgang Shields to drain your stomach fluid. Referrals: Ok Adkins MD [Primary Care Provider] - <Saurabh Magana - Last Filed: 07/19/16 19:08> Provider - Provider Date of Admission: 07/01/16 13:34 Attending physician: Ok Adkins MD Primary care physician: Ok Adkins MD Hospital Course - Lab Results Lab Results: Micro Results 07/01/16 16:50 Blood-Venous Blood Culture - Final NO GROWTH AFTER 5 DAYS 07/01/16 16:50 Blood-Venous Gram Stain - Final TEST NOT PERFORMED Most Recent Lab Values WBC 3.7 10^3/ul (4.5-11.0) L 07/03/16 06:45 RBC 3.48 10^6/uL (3.5-6.1) L 07/03/16 06:45 Hgb 11.5 gm/dL (14.0-18.0) L 07/03/16 06:45 Hct 32.5 % (42.0-52.0) L 07/03/16 06:45 MCV 93.4 fL (80.0-105.0) 07/03/16 06:45 MCH 33.0 pg (25.0-35.0) 07/03/16 06:45 MCHC 35.4 g/dl (31.0-37.0) 07/03/16 06:45 RDW 16.2 % (11.5-14.5) H 07/03/16 06:45 Plt Count 161 10^3/uL (120.0-450.0) 07/03/16 06:45 MPV 10.2 fl (7.0-11.0) 07/03/16 06:45 Gran % 66.9 % (50.0-68.0) 07/03/16 06:45 Lymph % (Auto) 23.6 % (22.0-35.0) 07/03/16 06:45 Trinity % (Auto) 7.9 % (1.0-6.0) H 07/03/16 06:45 Eos % (Auto) 1.1 % (1.5-5.0) L 07/03/16 06:45 Baso % (Auto) 0.5 % (0.0-3.0) 07/03/16 06:45 Gran # 2.46 (1.4-6.5) 07/03/16 06:45 Lymph # 0.9 (1.2-3.4) L 07/03/16 06:45 Trinity # 0.3 (0.1-0.6) 07/03/16 06:45 Eos # 0.0 (0.0-0.7) 07/03/16 06:45 Baso # 0.02 K/mm3 (0.0-2.0) 07/03/16 06:45 PT 12.9 Seconds (9.9-11.8) H 07/01/16 11:39 INR 1.19 (0.93-1.08) H 07/01/16 11:39 APTT 27.2 Seconds (23.7-30.8) 07/01/16 11:39 Sodium 134 mmol/L (132-148) 07/03/16 06:45 Potassium 3.9 mmol/L (3.6-5.0) 07/03/16 06:45 Chloride 102 mmol/L (98-107) 07/03/16 06:45 Carbon Dioxide 24 mmol/L (21-33) 07/03/16 06:45 Anion Gap 12 (10-20) 07/03/16 06:45 BUN 18 mg/dL (7-21) 07/03/16 06:45 Creatinine 0.9 mg/dL (0.5-1.4) 07/03/16 06:45 Est GFR ( Amer) > 60 07/03/16 06:45 Est GFR (Non-Af Amer) > 60 07/03/16 06:45 Random Glucose 82 mg/dL (70-110) 07/03/16 06:45 Calcium 8.7 mg/dL (8.4-10.5) 07/03/16 06:45 Total Bilirubin 3.2 mg/dL (0.2-1.3) H 07/03/16 06:45 AST 278 U/L (15-59) H 07/03/16 06:45 ALT 147 U/L (7-56) H 07/03/16 06:45 Alkaline Phosphatase 250 U/L (38-133) H 07/03/16 06:45 Lactate Dehydrogenase 545 U/L (333-699) 07/01/16 11:39 Total Creatine Kinase 32 U/L (35-230) L 07/01/16 11:39 Troponin I < 0.01 ng/mL 07/01/16 11:39 NT-Pro-B Natriuret Pep 460 pg/mL (0-450) H 07/01/16 11:39 Total Protein 6.3 g/dL (5.8-8.3) 07/03/16 06:45 Albumin 2.8 g/dL (3.0-4.8) L 07/03/16 06:45 Globulin 3.5 gm/dL 07/03/16 06:45 Albumin/Globulin Ratio 0.8 (1.1-1.8) L 07/03/16 06:45 Urine Color Yellow (YELLOW) 07/01/16 12:30 Urine Appearance Clear (CLEAR) 07/01/16 12:30 Urine pH 7.0 (4.7-8.0) 07/01/16 12:30 Ur Specific [place] 1.010 (1.005-1.035) 07/01/16 12:30 Urine Protein Negative mg/dL (<30 mg/dL) 07/01/16 12:30 Urine Glucose (UA) Negative mg/dL (NEGATIVE) 07/01/16 12:30 Urine Ketones Negative mg/dL (NEGATIVE) 07/01/16 12:30 Urine Blood Negative (NEGATIVE) 07/01/16 12:30 Urine Nitrate Negative (NEGATIVE) 07/01/16 12:30 Urine Bilirubin Negative (NEGATIVE) 07/01/16 12:30 Urine Urobilinogen 1.0 E.U./dL (<1 E.U./dL) H 07/01/16 12:30 Ur Leukocyte Esterase Negative Giorgi/uL (NEGATIVE) 07/01/16 12:30 Blood Type A POSITIVE 07/01/16 11:39 Antibody Screen Negative 07/01/16 11:39 BBK History Checked Patient has bt 07/01/16 11:39 Attending/Attestation - Attestation I have personally seen and examined this patient.: Yes I have fully participated in the care of the patient.: Yes I have reviewed all pertinent clinical information, including history, physical exam and plan: Yes Notes (Text): 07/19/16 19:08 Medical record note made by the resident after discussion with my direction and input after the patient was personally seen and examined by me. I have reviewed the chart and agree that the record accurately reflects by personal performance of the history, physical exam, data review, and medical decision-making, in the course for the patient. I have also personally directed the plan of care.
[2016-07-03 13:15] LABS: BLOOD UREA NITROGEN 18 mg/dL (7-21); CALCIUM 8.5 mg/dL (8.4-10.5); CARBON DIOXIDE 26 mmol/L (21-33); CHLORIDE 99 mmol/L (98-107); GFR AFRICAN-AMERICAN > 60; GLUCOSE,RANDOM 76 mg/dL (70-110); POTASSIUM 3.9 mmol/L (3.6-5.0); SODIUM 132 mmol/L (132-148)
--- NOTE | 2016-07-03 13:15 | CP.PCM.CON ---
History of Present Illness - History of Present Illness History of Present Illness: Palliative consult requested by Dr Jasmyn Magana Reason: Goals of care/hospice discussion 71 year old male admitted with abdominal distention and leg swelling History of advanced hepatocellular carcinoma. Paracentisis yesterday,6 liters removed PMHx: hepatocellular carcinoma, s/p chemotherapy with Nexavar, also was participant in a Clinical trial at [facility] [place],but progressed and was taken off study , neuropathy,HTN. Social History: Former smoker, denies alcohol or drug use. , lives with spouse Holly. Family History: Non contributory. Advance Care Planning: The patient does not have an Advanced Directive Review of Systems: As per HPI, Past Patient History - Infectious Disease Hx of Infectious Diseases: None - Tetanus Immunizations Tetanus Immunization: Unknown - Past Social History Smoking Status: Former Smoker - CARDIAC Hx Cardiac Disorders: Yes Hx Hypertension: Yes Hx Pacemaker: No - PULMONARY Hx Respiratory Disorders: No - NEUROLOGICAL Hx Neurological Disorder: No - HEENT Hx HEENT Problems: No - RENAL Hx Chronic Kidney Disease: No - ENDOCRINE/METABOLIC Hx Endocrine Disorders: No - HEMATOLOGICAL/ONCOLOGICAL Hx Blood Disorders: Yes Hx Cancer: Yes (Liver CA) Hx Chemotherapy: Yes (Last dose 01/13/16 in AM) - INTEGUMENTARY Hx Dermatological Problems: No - MUSCULOSKELETAL/RHEUMATOLOGICAL Hx Musculoskeletal Disorders: No Hx Falls: No - GASTROINTESTINAL Hx Gastrointestinal Disorders: Yes - GENITOURINARY/GYNECOLOGICAL Hx Genitourinary Disorders: No - PSYCHIATRIC Hx Emotional Abuse: No Hx Physical Abuse: No Hx Substance Use: No - SURGICAL HISTORY Hx Cardiac Catheterization: No Hx Coronary Stent: No - ANESTHESIA Hx Anesthesia: No Hx Anesthesia Reactions: No Hx Malignant Hyperthermia: No Meds Allergies/Adverse Reactions: Allergies Allergy/AdvReac Type Severity Reaction Status Date / Time No Known Allergies Allergy Verified 07/01/16 19:44 - Medications Medications: Current Medications Gabapentin (Neurontin) 400 mg PO TID MATTHEW PRN Reason: Protocol Last Admin: 07/03/16 10:02 Dose: 400 mg Losartan Potassium (Cozaar) 100 mg PO DAILY [facility] Last Admin: 07/03/16 10:03 Dose: 100 mg Ondansetron HCl (Zofran Inj) 4 mg IVP Q4 PRN PRN Reason: Nausea/Vomiting Pantoprazole Sodium (Protonix Ec Tab) 40 mg PO 0630 [facility] Last Admin: 07/03/16 05:45 Dose: 40 mg Prednisone (Prednisone Tab) 20 mg PO DAILY MATTHEW Last Admin: 07/03/16 10:03 Dose: 20 mg Physical Exam - Constitutional Appears: Cachectic, Chronically Ill - Head Exam Head Exam: NORMAL INSPECTION - Eye Exam Eye Exam: Normal appearance, PERRL - ENT Exam ENT Exam: Mucous Membranes Moist - Neck Exam Neck exam: Positive for: Normal Inspection - Respiratory Exam Respiratory Exam: Decreased Breath Sounds, NORMAL BREATHING PATTERN - Cardiovascular Exam Cardiovascular Exam: REGULAR RHYTHM, +S1, +S2 - GI/Abdominal Exam GI & Abdominal Exam: Distended, Normal Bowel Sounds, Soft Additional comments: RLQ dressing moist, oozing small amount of serous fluid s/p paracentisis - Extremities Exam Extremities exam: Positive for: pedal pulses present Additional comments: 2+ edema of lower extremities - Back Exam Back exam: NORMAL INSPECTION - Neurological Exam Neurological exam: Alert, Oriented x3 - Skin Skin Exam: Dry, Pallor - Additional Findings Additional findings: Palliative performance scale rating 50% Results - Vital Signs Recent Vital Signs: Last Vital Signs Temp 98.5 F 07/03/16 06:00 Pulse 84 07/03/16 06:00 Resp 20 07/03/16 06:00 BP 100/70 07/03/16 06:00 Pulse Ox 96 07/03/16 06:00 - Labs Result Diagrams: 07/03/16 06:45 07/03/16 06:45 Labs: Laboratory Results - last 24 hr 07/03/16 07/03/16 06:45 06:45 WBC 3.7 L RBC 3.48 L Hgb 11.5 L Hct 32.5 L MCV 93.4 MCH 33.0 MCHC 35.4 RDW 16.2 H Plt Count 161 MPV 10.2 Gran % 66.9 Lymph % (Auto) 23.6 [place] % (Auto) 7.9 H Eos % (Auto) 1.1 L Baso % (Auto) 0.5 Gran # 2.46 Lymph # 0.9 L [place] # 0.3 Eos # 0.0 Baso # 0.02 Sodium 134 Potassium 3.9 Chloride 102 Carbon Dioxide 24 Anion Gap 12 BUN 18 Creatinine 0.9 Est GFR ( Amer) > 60 Est GFR (Non-Af Amer) > 60 Random Glucose 82 Calcium 8.7 Total Bilirubin 3.2 H AST 278 H ALT 147 H Alkaline Phosphatase 250 H Total Protein 6.3 Albumin 2.8 L Globulin 3.5 Albumin/Globulin Ratio 0.8 L Assessment & Plan - Assessment and Plan (Free Text) Assessment: 71 year old male with history of hepatocellular carcinoma. Admitted with ascites , edema of lower extremities. Patient denies pain, shortness of breath ,nausea or vomiting. Ambulates with out assistance. Appetite fair. Abdominal dressing moist, oozing serous fluid from RLQ paracentisis site. Patient at bedside. Patient and express understanding of his disease and terminal prognosis. Patient states he does not want to return to he hospital in the future. He wants to be kept comfortable at home. Hospice services explained in detail. All questions answered> patient would like to have Aspira catheter placed as an outpatient for continued drainage of ascites. Benefits and burdens of procedure explained of catheter explained. Family met with [facility] service. Family has agreed to hospice care. Patient would like to go home today. Time spent with patient and in establishing goals of care, hospice and end of life discussion, 40 minutes Plan: Hospice evaluation. Discharge home with [facility] hospice services
[2016-07-03 13:16] LABS: ALB/GLOB RATIO 0.7 (1.1-1.8); ALKALINE PHOSPHATASE 246 U/L (38-133); ALT/SGPT 153 U/L (7-56); AST/SGOT 297 U/L (15-59); BILIRUBIN,TOTAL 3.4 mg/dL (0.2-1.3)
[2016-07-03 16:19] LABS: BASO # 0.02 K/mm3 (0.0-2.0); BASO % 0.6 % (0.0-3.0); EOS # 0.1 (0.0-0.7); EOS % 1.7 % (1.5-5.0); GRAN # 2.36 (1.4-6.5); GRAN % 67.6 % (50.0-68.0); HEMATOCRIT 31.4 % (42.0-52.0); LYMPH # 0.7 (1.2-3.4); LYMPH % 20.9 % (22.0-35.0); MEAN CELL VOLUME 93.2 fL (80.0-105.0); MEAN CORPUSCULAR HEMOGLOBIN 32.9 pg (25.0-35.0); MEAN CORPUSCULAR HGB CONC 35.4 g/dl (31.0-37.0); MEAN PLATELET VOLUME 10.2 fl (7.0-11.0); MONO # 0.3 (0.1-0.6); MONO % 9.2 % (1.0-6.0); PLATELET COUNT 160 10^3/uL (120.0-450.0); RED CELL DISTRIBUTION WIDTH 16.3 % (11.5-14.5); WHITE BLOOD COUNT 3.5 10^3/ul (4.5-11.0)
--- NOTE | 2016-07-16 09:53 | US ---
PROCEDURE: Ultrasound guided paracentesis. HISTORY: Alcoholic cirrhosis with hepatoma. Increased ascites with abdominal distention and pain. Needs paracentesis. PHYSICIAN(S): Wolfgang Shields MD. TECHNIQUE: The relative risks and indications for the procedure were explained to the patient and informed written consent obtained. Sonography of the abdomen was performed in a supine position. This revealed a moderate to large amount of non-loculated ascites, greatest in the right lower quadrant. A puncture site was selected and the area was prepped and draped in the usual sterile fashion. 1% Xylocaine was used to anesthetize the skin and soft tissues. A 7 [place] paracentesis catheter was trocared into the right lower quadrantand 6600 cc of mccracken fluid aspirated. No labs were sent IMPRESSION: Ultrasound-guided paracentesis in the right lower quadrant. 6600 cc of fluid were aspirated.
== END 2016-07-03 15:41 | disposition hospice, home (50) | DRG 436 ==
LOC: ED 10:41 → ERH 13:34 → 3RNO 14:53
PROVIDERS: ADMIT Internal Medicine; ATTEND Internal Medicine
PROC: 0W9G3ZZ Drainage of Peritoneal Cavity, Percutaneous Approach (ICD-10-PCS; principal; 2016-07-02 12:00)
DX: C22.0 Liver cell carcinoma (principal); R18.8 Other ascites; G62.9 Polyneuropathy, unspecified; I10 Essential (primary) hypertension; R60.9 Edema, unspecified; Z51.5 Encounter for palliative care; Z92.21 Personal history of antineoplastic chemotherapy; Z87.891 Personal history of nicotine dependence

== ENCOUNTER 2016-07-15 08:51 | Day surgery (SDC) | payer OTHER, MEDICARE ==
[2016-07-15 09:22] LABS: ADD MANUAL DIFF? NO
[2016-07-15 09:23] LABS: BASO # 0.03 K/mm3 (0.0-2.0); BASO % 0.5 % (0.0-3.0); EOS # 0.1 (0.0-0.7); EOS % 1.1 % (1.5-5.0); GRAN # 4.09 (1.4-6.5); HEMATOCRIT 33.8 % (42.0-52.0); LYMPH % 18.4 % (22.0-35.0); MEAN CELL VOLUME 92.6 fL (80.0-105.0); MEAN CORPUSCULAR HEMOGLOBIN 33.7 pg (25.0-35.0); MEAN CORPUSCULAR HGB CONC 36.4 g/dl (31.0-37.0); MEAN PLATELET VOLUME 9.2 fl (7.0-11.0); MONO # 0.3 (0.1-0.6); PLATELET COUNT 224 10^3/uL (120.0-450.0); RED CELL DISTRIBUTION WIDTH 16.6 % (11.5-14.5); WHITE BLOOD COUNT 5.5 10^3/ul (4.5-11.0)
[2016-07-15 09:35] LABS: BLOOD UREA NITROGEN 19 mg/dL (7-21); CALCIUM 8.5 mg/dL (8.4-10.5); CARBON DIOXIDE 27 mmol/L (21-33); CHLORIDE 94 mmol/L (98-107); GFR AFRICAN-AMERICAN > 60; GLUCOSE,RANDOM 86 mg/dL (70-110); POTASSIUM 3.8 mmol/L (3.6-5.0); SODIUM 128 mmol/L (132-148)
[2016-07-15 09:48] LABS: INR 1.12 (0.93-1.08); PARTIAL THROMBOPLASTIN TIME 26.5 Seconds (23.7-30.8)
--- NOTE | 2016-07-15 10:39 | CP.SDSHP ---
Same Day Surgery H & P - History Proposed Procedure: Paracentesis Pre-Op Diagnosis: Hepatocellular carcinoma - Previous Medical/Surgical History Cardiac: Hypertension (BP has been nl lately,his bp med is on hold.) Pulmonary: Smoking (gave up > 40 years ago.) Endocrine/Metabolic: ETOH Abuse (drank 12 cans of beer /day,gave up in Oct when his liver ca was diagnosed) Neuro: Other (Neuropathy) Misc: Other (history of hepatocellular ca.,S/P chemotherapy) Pain: 0. No Pain Comments: Pt is on home hospice care Previous Surgical History: Paracentesis - Allergies Allergies: Allergies No Known Allergies Allergy (Verified 07/01/16 19:44) - Physical Exam General Appearance: Cachectic looking male Vital Signs: Vital Signs 07/15/16 09:42 Temperature 97.7 F Pulse Rate 90 Respiratory 22 Rate Blood Pressure 98/65 L O2 Sat by Pulse 97 Oximetry Mental Status: Alert & Oriented x3 Neuro: WNL Heart: WNL Lungs: WNL - {Optional Preform as Required} Abdomen: Other (very distended,fluid ++) - Impression Impression: Ascites - Date & Time Date: 07/15/16 Time: 10:38 Short Stay Discharge - Short Stay Discharge Admitting Diagnosis/Reason for Visit: [id number] Disposition: HOME/ ROUTINE Referrals: Ok Adkins MD [Primary Care Provider] -
[2016-07-15 11:57] VITALS: RESP 20; TEMP 98
[2016-07-15 12:58] VITALS: BP 99/62; PULSE 87; O2SAT 98
--- NOTE | 2016-07-15 15:51 | US ---
PROCEDURE: Ultrasound guided paracentesis. HISTORY: Alcoholic cirrhosis. End-stage hepatoma. Malignant ascites with abdominal pain and distention. Needs paracentesis. PHYSICIAN(S): Wolfgang Shields MD. TECHNIQUE: The relative risks and indications for the procedure were explained to the patient and his and informed written consent obtained. Sonography of the abdomen was performed in a supine position. This revealed a moderate to large amount of non-loculated ascites, greatest in the right lower quadrant. A puncture site was selected and the area was prepped and draped in the usual sterile fashion. 1% Xylocaine was used to anesthetize the skin and soft tissues. A 7 [place] paracentesis catheter was trocared into the right lower quadrantand 9000 cc of serosanguineous fluid aspirated. No labs were sent. IMPRESSION: Ultrasound-guided paracentesis in the right lower quadrant. 9000 cc of fluid were aspirated.
== END 2016-07-15 13:10 | disposition home or self-care (01) ==
LOC: SDS 08:51
PROVIDERS: ATTEND Radiology Vascular & Interventional Radiology
DX: C22.0 Liver cell carcinoma (principal); R18.0 Malignant ascites; K70.30 Alcoholic cirrhosis of liver without ascites; R10.9 Unspecified abdominal pain; I10 Essential (primary) hypertension; Z66 Do not resuscitate